=== PATIENT | female | born 1930 | race African-American/Black ===

== ENCOUNTER 2021-02-05 11:11 | Inpatient (IN) | payer OTHER ==
[~2021-02-05] VITALS: Ht 152.4 cm; Wt 41.7 kg
[2021-02-05 11:22] VITALS: BP 139/58
[2021-02-05] MEDS ORDERED: MORPHINE SULFATE 2 MG/ML SYR IVP PRN (11:35)
[2021-02-05] MEDS ORDERED: BUME1TAB PO (11:38)
[2021-02-05] MEDS ORDERED: GABA100C PO (11:38)
[2021-02-05] MEDS ORDERED: CARV3.12 PO (11:38)
[2021-02-05] MEDS ORDERED: POTA8TAB19 PO (11:38)
[2021-02-05] MEDS ORDERED: APIX5TAB PO (11:38)
[2021-02-05] MEDS ORDERED: ALBU0.0912 IH (11:38)
[2021-02-05] MEDS ORDERED: PANT40EC PO (11:38)
[2021-02-05] MEDS ORDERED: CHOL5000 PO (11:38)
[2021-02-05] MEDS ORDERED: TRAM50TA1 PO (11:38)
[2021-02-05] MEDS ORDERED: DOCU-299 PO (11:38)
[2021-02-05] MEDS ORDERED: ASPI-1749 PO (11:38)
[2021-02-05] MEDS ORDERED: SPIR50TA PO (11:38)
[2021-02-05] MEDS ORDERED: ATOR40TA PO (11:38)
--- NOTE | 2021-02-05 11:39 | NUR ---
MED REC COMPLETED
--- NOTE | 2021-02-05 11:40 | NUR ---
89 Y FEMALE BIBA FROM [facility] DUE TO WOUND ON R CALF AND GANGRINE OF 2ND TOE ON R TOE. PT BASELINE IS CURRENTLY A&OX1 TO NAME ONLY. UPON ASSESSMENT SKIN IS DRY AND FLAKY. OPEN WOUND NOTED ON R LOWER LE AND PHOTOS TAKEN. GANGRINE TOE NOTED ON R SECOND TOE. BREATH SOUNDS CLEAR, BUT PATIENT IS TACHYPENIC. PMH: CHF, CELLULITS OF BILATERAL LE, A. FIB, CEREBRAL INFRACTION, DVT, HDL, POLYNEUROPATHY, L SIDE HYSETERECTOMY, CKD, GERD, AND HYPOTENSION ALLERGIES: CODINE AND SULFA DRUGS Addendum: 02/05/21 at 1505 by [email or web address] DIMINISHED PULSES NOTED IN BILATERAL LE Addendum: 02/05/21 at 1514 by [email or web address] PMH: CHF, CELLULITS OF BILATERAL LE, A. FIB, CEREBRAL INFRACTION, DVT, HDL, POLYNEUROPATHY, L SIDE MASTECTOMY, CKD, GERD, AND HYPOTENSION
--- NOTE | 2021-02-05 11:43 | NUR ---
BLOOD SAMPLE/CULTURES, SARBJIT SWAB HANDED TO CPT MICHA AT ER BEDSIDE
--- NOTE | 2021-02-05 11:47 | NUR ---
XRAY BEDSIDE WITH PATIENT
[2021-02-05 11:53] LABS: BASOPHILS % (AUTO) 0.2 % (0.0-2.0); EOSINOPHILS % (AUTO) 0.2 % (0.0-4.0); HEMATOCRIT 31.8 % (36-48); HEMOGLOBIN 10.4 g/dL (12.0-16.0); LYMPHOCYTES # (AUTO) 0.6 K/uL (2.5-16.5); LYMPHOCYTES % (AUTO) 9.1 % (20.5-51.1); MEAN CORPUSCULAR HEMOGLOBIN 27 pg (27-31); MEAN CORPUSCULAR HGB CONC 33 g/dL (33-37); MEAN CORPUSCULAR VOLUME 82.9 fL (80-94); MONOCYTES # (AUTO) 0.6 K/uL (0.8-1.0); MONOCYTES % (AUTO) 8.7 % (1.7-9.3); NEUTROPHILS # (AUTO) 5.5 K/uL (1.8-7.7); NEUTROPHILS % (AUTO) 81.8 % (42.2-75.2); PLATELET COUNT (AUTO) 326 K/uL (140-450); RED BLOOD CELL COUNT(AUTO) 3.83 MIL/uL (4.20-5.40); RED CELL DISTRIBUTION WIDTH 17.8 % (11.6-13.7); WHITE BLOOD COUNT (AUTO) 6.7 K/uL (4.8-10.8)
--- NOTE | 2021-02-05 11:54 | NUR ---
WOUND PHOTOS COMPLETED AND PLACED INTO PATIENT CHART
[2021-02-05 12:21] LABS: ALBUMIN 2.9 g/dL (3.4-5.0); ASPARTATE AMINOTRANSFERASE 51 U/L (15-37); CARBON DIOXIDE 23.7 mmol/L (21-32); CHLORIDE 103 mmol/L (98-107); CREATININE 1.7 mg/dL (0.6-1.3); GLUCOSE 126 mg/dL (74-106); POTASSIUM 4.7 mmol/L (3.5-5.1); SODIUM SERUM 138 mmol/L (136-145); TOTAL BILIRUBIN 1.3 mg/dL (0.0-1.0); UREA NITROGEN, BLOOD 38 mg/dL (7-18)
[2021-02-05] MEDS ORDERED: PIPERACILLIN/TAZOBACTAM 3.375 GM in DEXTROSE 5% 50 ML IV ONE (12:35)
[2021-02-05] MEDS ORDERED: VANCOMYCIN 1,000 MG in DEXTROSE 5% 250 ML IV ONE (12:35)
[2021-02-05] MEDS ORDERED: PIPERACILLIN/TAZOBACTAM 3.375 GM VIAL IV ONE (12:41)
[2021-02-05] MEDS ORDERED: INSULIN LISPRO SLIDING SCALE 100 UNITS/ML VIAL SUBQ PRN (13:00)
[2021-02-05] MEDS ORDERED: HYDROcodone/APAP 5/325 MG 1 TAB TAB PO PRN (13:00)
[2021-02-05] MEDS ORDERED: ONDANSETRON 4 MG/2 ML VIAL IVP PRN (13:00)
[2021-02-05] MEDS ORDERED: DEXTROSE 50% 50 ML SYR IVP PRN (13:00)
[2021-02-05] MEDS ORDERED: ACETAMINOPHEN 325 MG TAB PO PRN (13:00)
--- NOTE | 2021-02-05 13:02 | NUR ---
PT ADMITTED TO TELE UNDER DR. DURON. PT TELE HOLD IN ED BED 11
--- NOTE | 2021-02-05 14:11 | NUR ---
PT PROVIDED WITH FRESH DIAPER AND COVERED WITH WARM BLANKET. PT ALSO REPOSITIONED FOR COMFORT AT THIS TIME
[2021-02-05] MEDS: NACL 0.9% 1,000 ML IV SCH (14:13)
[2021-02-05] MEDS ORDERED: METOPROLOL 5 MG/5 ML VIAL IV ONE (14:20)
[2021-02-05] MEDS ORDERED: METOPROLOL 50 MG TAB PO SCH (14:20)
[2021-02-05] MEDS ORDERED: VANCOMYCIN 1,000 MG VIAL ONE (14:21)
[2021-02-05] MEDS: MORPHINE SULFATE 2 MG/ML SYR IVP PRN (14:58)
--- NOTE | 2021-02-05 14:59 | NUR ---
SURGEON DR. Cruz BEDSIDE EVALUATING PT.
--- NOTE | 2021-02-05 14:59 | NUR ---
PT PROVIDED WITH FRESH DRESSING OVER WOUND ON CALF
--- NOTE | 2021-02-05 15:00 | NUR ---
14:56 - WOUND REDRESSED ON LEFT LOWER EXTREMITIY WITH NON ADHESIVE AND COBAND
[2021-02-05] MEDS: ALBUMIN HUMAN 25% 100 ML IV SCH ×2 (16:16→22:32)
--- NOTE | 2021-02-05 16:27 | NUR ---
Patient appears to be resting comfortably in bed WITH EYES OPEN. Vital Signs within normal limits AND CHARTED. Respirations even and unlabored. WILL CONTINUE TO MONITOR PT STATUS
[2021-02-05] MEDS: BLOOD GLUCOSE MONITORING 1 DEV DEV FS SCH ×2 (16:37→21:00)
--- NOTE | 2021-02-05 16:37 | NUR ---
GLUCOSE LEVEL CHECKED BEDSIDE. GLUCOSE LEVEL 141. NO INSULIN COVERAGE NEEDED AT THIS TIME
--- NOTE | 2021-02-05 17:17 | NUR ---
PT REFUSING BLOOD WORK AT THIS TIME
--- NOTE | 2021-02-05 17:51 | NUR ---
Patient appears to be resting comfortably in bed. Vital Signs within normal limits. Respirations even and unlabored.
[2021-02-05 17:55] LABS: CREATINE KINASE MB 2.6 ng/mL (0-3.6)
[2021-02-05] MEDS: LORazepam 2 MG/ML VIAL IVP PRN (18:15)
--- NOTE | 2021-02-05 18:33 | NUR ---
LAB BEDSIDE WITH PATIENT
--- NOTE | 2021-02-05 18:48 | NUR ---
SPOKE WITH DR. MONTERO AND GIVEN VERBAL ORDER TO STRAIGHT CATH PATIENT TO OBTAIN URINE SAMPLE
--- NOTE | 2021-02-05 18:50 | NUR ---
# 16 FR Urinary catheter inserted utilizing sterile technique. Immediate return of 20 ml YELLOW urine noted. Urine sample collected and sent to lab. Pt tolerated procedure WELL.
--- NOTE | 2021-02-05 19:00 | NUR ---
URINE COLLECTED AND WALKED OVER TO LAB
--- NOTE | 2021-02-05 19:26 | NUR ---
Pt report given to NEEL MCKOY. Transfer of care at this time.
[2021-02-05 19:28] LABS: APPEARANCE,URINE CLEAR (CLEAR); BILIRUBIN,URINE NEGATIVE (NEGATIVE); BLOOD, URINE 1+ (NEGATIVE); COLOR,URINE YELLOW (YELLOW); LEUKOCYTE ESTERASE ,URINE 3+ (NEGATIVE); NITRITE, URINE NEGATIVE (NEGATIVE); UGLUCOSE NEGATIVE (NEGATIVE)
[2021-02-05] MEDS: PIPERACILLIN/TAZOBACTAM 2.25 GM in DEXTROSE 5% 50 ML IV SCH (21:00)
[2021-02-05 21:45] LABS: RBC,URINE NONE SEEN /HPF (0-5); WBC,URINE 80-100 /HPF (0-5)
--- NOTE | 2021-02-05 21:54 | NUR ---
PATIENT STILL STABLE TROPONIN ELEVATE 0.130 WAS INFORMED WE DID AN EKG AND IT WAS NORMAL REPORTED GAVE TO CARMEN SHAIKH on the floor //Mer
--- NOTE | 2021-02-05 21:58 | NUR ---
patient Dyper was change we provided a fresh dyper //DiCaprio RN
--- NOTE | 2021-02-05 22:20 | NUR ---
RECEIVED REPORT AND PT FROM ED SAUL RN FOR ADMIT TO [facility] ROOM 110A. PT ARRIVED NONVERBAL, AROUSABLE TO VERBAL/TACTILE STIMULI. NO APPARENT S/S OF ACUTE DISTRESS. BREATHING EVEN AND UNLABORED ON 74L NC WITH O2 SAT OF 100%. NO C/O OR S/S OF CP, SOB OR PAIN. R IJ 20G INTACT/PATENT. POC AND WHITE COMMUNICATION BOARD UPDATED. BED IN LOW/LOCKED POSITION. CALL LIGHT WITHIN REACH. PT ENCOURAGED TO CALL FOR ANY NEEDS/ASSISTANCE. WILL CONTINUE TO MONITOR.
--- NOTE | 2021-02-05 22:30 | NUR ---
2100 MEDS GIVEN PER EMAR UPON ARRIVAL TO FLOOR. TOLERATED WELL. ZOSYN NOT AVAILABLE AT THIS TIME. HOUSE SUP NOTIFIED AND WILL F/U WITH OBTAINING FROM PHARMACY TO ADMINISTER.
--- NOTE | 2021-02-05 22:36 | NUR ---
PATIENT ADMITED TO THE FLOOR STABLE WENT TO ROOM [address] FRIEDMAN REPORTED GAVE TO CARMEN SHAIKH VITAL SIGNS IN NORMAL LIMITS NO COMPLAINING OF PAIN //DiCaprio RN
--- NOTE | 2021-02-05 22:50 | NUR ---
EKG PERFORMED BY RT, RESULTS UNCHANGED FROM PREVIOUS 2 EKGS PERFORMED IN ED.
--- NOTE | 2021-02-05 22:56 | NUR ---
EKG PERFORMED AND ABNORMAL RESULTS REPORTED TO RN. A COPY WAS PROVIDED TO THE RN AND PLACED IN THE CHART. DUE TO ABNORMAL RESULTS A RHYTHM STRIP WAS ALSO OBTAINED AND PLACED IN THE CHART.
[2021-02-05 23:39] VITALS: BP 123/57
[2021-02-06] VITALS: BP 122/44
--- NOTE | 2021-02-06 00:10 | NUR ---
DR. DURON CALLED FOR CLARIFICATION ON CODE STATUS. PUT ORDER IN FOR DNR AND PATIENT HAS A COPY OF POLST IN CHART FOR DNR, DATED 01/2021. WILL AWAIT CALL BACK AND ORDERS.
[2021-02-06] MEDS ORDERED: PIPERACILLIN/TAZOBACTAM 2.25 GM VIAL IV ONE (00:12)
[2021-02-06] MEDS: NACL 0.9% 1,000 ML IV SCH ×2 (01:32→14:40)
[2021-02-06 04:00] VITALS: BP 122/45
[2021-02-06] MEDS: PIPERACILLIN/TAZOBACTAM 2.25 GM in DEXTROSE 5% 50 ML IV SCH ×3 (05:00→22:16)
[2021-02-06] MEDS: ALBUMIN HUMAN 25% 100 ML IV SCH (05:20)
[2021-02-06] MEDS: BLOOD GLUCOSE MONITORING 1 DEV DEV FS SCH ×4 (06:44→21:00)
--- NOTE | 2021-02-06 07:00 | NUR ---
REPORT GIVEN TO LEON RN FOR CONTINUITY OF CARE. NO APPARENT S/S OF ACUTE DISTRESS. BREATHING EVEN AND UNLABORED. LEON TO F/U WITH DR. DURON IN REGARDS TO CODE STATUS AND PHARMACY TO RECONCILE ZOSYN ADMINISTRATION TIMES. BED IN LOW/LOCKED POSITION. CALL LIGHT WITHIN REACH. ALL NEEDS MET AT THIS TIME.
--- NOTE | 2021-02-06 07:15 | NUR ---
RECEIVED REPORT FROM WORKERS COMPENSATION ANALYST NURSE. BREATHING SYMMETRICAL. NO S/S OF DISTRESS. IV RUNNING PER MD ORDERS. CALL LIGHT IN REACH. ALL SAFETY MEASURES ARE IN PLACE. O2 1L NC.
[2021-02-06 08:00] VITALS: BP 111/45
--- NOTE | 2021-02-06 08:00 | NUR ---
SPOKE TO SOLID WASTE LANDFILL TECHNICIAN. PT REFUSED ULTRASOUND. WILL DISCUSS REFUSAL WITH PT AND RESCHEDULE US
[2021-02-06 08:32] LABS: BASOPHILS % (AUTO) 0.5 % (0.0-2.0); EOSINOPHILS % (AUTO) 0.3 % (0.0-4.0); HEMOGLOBIN 8.7 g/dL (12.0-16.0); LYMPHOCYTES # (AUTO) 0.6 K/uL (2.5-16.5); LYMPHOCYTES % (AUTO) 11.3 % (20.5-51.1); MEAN CORPUSCULAR HEMOGLOBIN 27 pg (27-31); MEAN CORPUSCULAR HGB CONC 32 g/dL (33-37); MEAN CORPUSCULAR VOLUME 84.3 fL (80-94); MONOCYTES # (AUTO) 0.4 K/uL (0.8-1.0); MONOCYTES % (AUTO) 8.6 % (1.7-9.3); NEUTROPHILS # (AUTO) 4.2 K/uL (1.8-7.7); NEUTROPHILS % (AUTO) 79.3 % (42.2-75.2); PLATELET COUNT (AUTO) 246 K/uL (140-450); RED CELL DISTRIBUTION WIDTH 18.3 % (11.6-13.7); WHITE BLOOD COUNT (AUTO) 5.2 K/uL (4.8-10.8)
[2021-02-06 08:47] LABS: ALBUMIN 3.9 g/dL (3.4-5.0); ANION GAP 16.3 (8-16); ASPARTATE AMINOTRANSFERASE 44 U/L (15-37); CARBON DIOXIDE 21.1 mmol/L (21-32); CHLORIDE 106 mmol/L (98-107); CREATININE 1.7 mg/dL (0.6-1.3); GLUCOSE 101 mg/dL (74-106); MAGNESIUM 2.1 mg/dL (1.8-2.4); POTASSIUM 4.4 mmol/L (3.5-5.1); SODIUM SERUM 139 mmol/L (136-145); TOTAL BILIRUBIN 1.4 mg/dL (0.0-1.0); UREA NITROGEN, BLOOD 38 mg/dL (7-18)
--- NOTE | 2021-02-06 08:54 | NUR ---
RECEIVED CRITICAL VALUES FROM [facility] IN LAB. TROPONIN 0.125, DOWN TRENDING.
[2021-02-06] MEDS: ASPIRIN 81 MG TAB.CHEW PO SCH (09:00)
--- NOTE | 2021-02-06 09:05 | NUR ---
PATIENT HAS BEEN SCREENED AND CATEGORIZED HIGH NUTRITION RISK. PATIENT WILL BE SEEN WITHIN 1-2 DAYS OF ADMISSION. 02/06/21-02/07/[address]
--- NOTE | 2021-02-06 09:46 | NUR ---
PT REFUSED BREAKFAST AND PO MEDICATION. PT PULLED OUT IV. PT EDUCATED ON MEDICATION GIVEN. BREATHING SYMMETRICAL ON RA. NO S/S OF DISTRESS. CALL LIGHT IN REACH. ALL SAFETY MEASURES IN PLACE. WILL ATTEMPT NEW IV.
--- NOTE | 2021-02-06 10:42 | NUR ---
SPOKE TO DR STAPLETON. PT NOT CLEARED BY CARDIOLOGY. WANTS PULMONOLOGY CLEARED FIRST. NOTIFIED ABOUT IV ACCESS. ASKED FOR PT FAMILY TO BE NOTIFIED OF STATUS.
[2021-02-06 12:00] VITALS: BP 116/47
--- NOTE | 2021-02-06 12:20 | NUR ---
WOUND CARE EVALUATION NOTE: REASON FOR EVALUATION: LOW JIMMY SCALE AND LEG WOUND 89-YEAR-OLD [facility] ADMITTED WITH DRY GANGRENE OF THE SECOND RIGHT TOE AND COMPLAINS OF PAIN IN THE RIGHT LOWER EXTREMITY. 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 SKIN ASSESSMENT DONE ON THIS PT.PT IS AWAKE, TRY TO PUSH AWAY THE WOUND CARE NURSE DURING ASSESSMENT, PT. WITH PAIN 8/10 WHEN BLE TOUCHED, SKIN IS WARM , PALE AND DRY WITH POOR SKIN TURGOR, BLE SEVERE CONTRACTURES, NO HAIR GROWTH, NO EDEMA. DORSAL PEDAL PULSES PRESENT AND NORMAL. CAPILLARY REFILLED > 3 SEC. X 9 TOES. INCONTINENT BOWEL AND BLADDER. PLAN OF CARE DISCUSSED WITH PRIMARY RN. INTEGUMENTARY: -ORAL MEMBRANE INTACT PALE AND DRY - RIGHT 2ND TOE DRY GANGRENE - PERIPHERAL VASCULAR DISEASE RIGHT LATERAL LOWER LEG FULL THICKNESS SKIN LOSS 4X4X1.5CM WOUND BED 50% PALE PINK TISSUE WITH 50 % SOFT SLOUGH TISSUE, SMALL AMOUNT PURULENT DRAINAGE WITH MILD ODOR, YUNG WOUND SKIN OLD HEALED SCAR TISSUE, DRY AND INTACT. RECOMMENDATIONS: -PENDING SURGEON FOR DEBRIDEMENT -CLEANSE RLE WITH WOUND CARE SOLUTION, PAT DRY, PACK MOIST BETADINE 4X4 DRESSING TO WOUND BED, AND COVER WITH DRY DRESSING QD AND PRN IF SOILING -PAINT RIGHT 2ND TOE WITH BETADINE SOLUTION BID AND JUNO -APPLY FORM DRESSING TO ALL BONY PROMINENCES CHANGE Q3 DAYS AND PRN IF SOILING -APPLY HEEL PROTECTORS TO BOTH HEELS AT ALL TIMES -OFFLOAD BILATERAL HEELS BY PLACING PILLOWS UNDER CALVES UNLESS OTHERWISE CONTRAINDICATED -PRESSURE REDISTRIBUTION SURFACE THERAPY -TURN AND REPOSITION Q2H, OFFLOAD SACRALCOCCYX AND BUTTOCKS BY TURNING RIGHT AND LEFT -CONTINUE TO FOLLOW RD RECOMMENDATIONS PLEASE CONTACT WOUND CARE NURSE FOR ANY QUESTION AND CHANGE OF WOUND CONDITION.
--- NOTE | 2021-02-06 12:54 | NUR ---
PT RESTING IN BED. NEW IV INSERTED IN RIGHT AC 24G. PT TOLERATED WELL. CALL LIGHT IN REACH. ALL SAFETY MEASURES IN PLACE.
[2021-02-06] MEDS: GAUZE TP SCH (13:21)
[2021-02-06 13:58] LABS: CREATINE KINASE MB 4.1 ng/mL (0-3.6)
--- NOTE | 2021-02-06 14:03 | NUR ---
SPOKE TO COURTNEY IN LAB. CRITICAL VALUE REPORTED. TROPONIN 0.134
--- NOTE | 2021-02-06 14:28 | NUR ---
02/06/21 RD INITIAL ASSESSMENT COMPLETED PLEASE REFER TO NUTRITION ASSESSMENT UNDER CARE ACTIVITY FOR ESTIMATED NUTRITIONAL NEEDS. 1. [facility] TOL[facility] 2. RECOMMEND GLUCERNA BID AND CHELY BID -THIS WILL PROVIDE AN ADDITIONAL 440 KCAL AND [address] TO FOLLOW-UP 2-3 DAYS, HIGH RISK ANA XIE, RD
--- NOTE | 2021-02-06 15:04 | NUR ---
DC PLANNING 89 YRS OLD FEMALE PATIENT WAS ADMITTED FROM [facility] WITH A DX OF RIGHT FOOT GANGRENE. PATIENT HAS A HX OF HTN, DM, OSTEOARTHRITIS , PVD AND DVT ON RT LEG. 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 URINE CULTURE PENDING. SEEN BY CARDIO AND SURGEON DR GALEAS DISCUSSED WITH PATIENT FOR POSSIBLE RT 2ND TOE AMPUTATION AND DEBRIDEMENT OF THE HEEL AND CONSULTED WITH PODIATRY. DC PLAN TO GO BACK TO [facility] WHEN STABLE CM TO FOLLOW Addendum: 02/07/21 at 1348 by Marbella Bender RN DC PLANNING: [facility] AND CALLED AND SPOKE WITH ARSLAN, PT CAN GO TO ROOM 22A. ARRANGED TRANSPORT WITH [facility]. COMMUNITY AMBASSADOR TIME 1700 FAXED ALL THE ORDERS TO [facility] , AWAITING FOR AUTH FOR SNF. CM TO FOLLOW Addendum: 02/07/21 at 1407 by Marbella Bender RN DC PLANNING: CALLED [facility] SPOKE WITH [employer], FAXED THE ORDER, SHE PROVIDED THE AUTH FOR [facility] [id number] AND TRANSPORT AUTH [id number] [place] TO FOLLOW COMMUNITY AMBASSADOR TIME 1700 Addendum: 02/08/21 at 1415 by Marbella Bender RN DC PLANNING: PATIENT HAS PICC LINE GOING BACK TO [facility] ROOM NUMBER 22A # TO GIVE REPORT [phone] ARRANGED TRANSPORT WITH [facility] [phone] COMMUNITY AMBASSADOR TIME 3 PM .NOTIFIED MASON MCKEON CM TO FOLLOW
[2021-02-06 16:00] VITALS: BP 116/43
--- NOTE | 2021-02-06 16:39 | NUR ---
SPOKE TO PT SON SHIVANI AT [phone]. UPDATED ON PT CONDITION AND CANCELLATION OF SURGERY ON RIGHT FOOT. SON CONFIRMED PT DNR STATUS. WILL HAVE PT CALL FAMILY WHEN SHE IS AWAKE AND ALERT.
--- NOTE | 2021-02-06 18:35 | NUR ---
SPOKE TO PT ESTIVEN PARRISH. UPDATED SON AND CONNECTED ROOM PHONE FOR PT TO USE. PATIENT COMPLAINED OF PAIN IN LEGS. BREATHING SYMMETRICAL. CALL LIGHT IN REACH. ALL SAFETY MEASURES IN PLACE. IV RUNNING PER MD ORDER.
[2021-02-06] MEDS: MORPHINE SULFATE 2 MG/ML SYR IVP PRN (19:04)
--- NOTE | 2021-02-06 19:05 | NUR ---
PT MEDICATED FOR PAIN. EDUCATED ON MEDICATION GIVEN. PT VERBALIZED UNDERSTANDING. PT ON PHONE WITH FAMILY. NO S/S OF DISTRESS. CALL LIGHT IN REACH. ALL SAFETY MEASURES IN PLACE. WILL REASSESS
[2021-02-06 20:00] VITALS: BP 119/65
--- NOTE | 2021-02-06 20:06 | NUR ---
ENDORSED PT TO WINDOWS SERVER SUPPORT TECHNICIAN NURSE FOR CONTINUITY OF CARE. PT STABLE. BREATHING SYMMETRICAL. NO S/S OF DISTRESS. CALL LIGHT IN REACH. ALL SAFETY MEASURES IN PLACE. IV PATENT. IV FLUIDS RUNNING PER MD ORDER.
--- NOTE | 2021-02-06 23:20 | NUR ---
THE PATEINTR IS NON VERBAL , ALERT ORIENTED X1, VITALS ARE STABLE . BREATHING IS EVEN AND UNLABORED. NO COMPLAIN OF PAIN . PATEINT BS IS 89, NO INSULIN COVERAGE . MEDS WERE ADMINISTERED. BED IS LOW POSITION , COMFORT AND SAFETY MEASURES WERE PROVIDED
[2021-02-07 01:12] VITALS: BP 108/59
--- NOTE | 2021-02-07 01:14 | NUR ---
the patient stateds to talk and stated that she had pain 6 on scale 0-10 . narco was given .
[2021-02-07] MEDS: NACL 0.9% 1,000 ML IV SCH (03:50)
[2021-02-07 03:59] VITALS: BP 120/70
[2021-02-07] MEDS: LORazepam 2 MG/ML VIAL IVP PRN (03:59)
--- NOTE | 2021-02-07 06:05 | NUR ---
the patient was confused and anxious. ativan was given , she is calm and sleeps comfotable in her bed . comfort and safety measures are provided
[2021-02-07] MEDS: PIPERACILLIN/TAZOBACTAM 2.25 GM in DEXTROSE 5% 50 ML IV SCH ×3 (06:09→21:40)
--- NOTE | 2021-02-07 07:15 | NUR ---
RECEIVED REPORT FROM PINBALL MACHINE REPAIRER NURSE. BREATHING SYMMETRICAL. NO S/S OF DISTRESS. RECONNECTED IV. IV RUNNING PER MD ORDERS. CALL LIGHT IN REACH. ALL SAFETY MEASURES ARE IN PLACE.
[2021-02-07 08:00] VITALS: BP 111/64
[2021-02-07] MEDS: BLOOD GLUCOSE MONITORING 1 DEV DEV FS SCH ×4 (08:09→21:44)
[2021-02-07] MEDS: ASPIRIN 81 MG TAB.CHEW PO SCH (08:10)
--- NOTE | 2021-02-07 08:11 | NUR ---
PT BG 91. NO COVERAGE NEEDED. PATENT REFUSED ASPIRIN. PT SON STATED PATENT CAN NOT TAKE ASPIRIN PER PCP/ PRIMARY BOND UNDERWRITER. PT STABLE. NO S/S OF DISTRESS. CALL LIGHT IN REACH. ALL SAFETY MEASURES IN PLACE
--- NOTE | 2021-02-07 10:40 | NUR ---
PT RESTING IN BED. BREATHING SYMMETRICAL. NO S/S OF DISTRESS. CALL LIGHT IN REACH. ALL SAFETY MEASURES ARE IN PLACE. IV FLUID ORDER IS DISCONTINUED. DR STAPLETON SPOKE TO PT FAMILY WITH UPDATE. Addendum: 02/07/21 at 1237 by Ugo Ceja RN RN NEW ORDER WAS ENTERED FOR LOPRESSOR 50MG BID PO TO START NOW.
[2021-02-07] MEDS ORDERED: ROC2I IV (10:49)
[2021-02-07] MEDS ORDERED: METO25TA PO (10:59)
[2021-02-07] MEDS ORDERED: METOPROLOL 50 MG TAB PO SCH (11:00)
[2021-02-07 12:00] VITALS: BP 124/89
--- NOTE | 2021-02-07 12:34 | NUR ---
PT HAS DC ORDER IN. WAITING FOR CM TO CONFIRM PLAN WITH CARE FACILITY FOR ROOM AND TRANSPORTATION. BG 89. NO COVERAGE NEEDED. BREATHING SYMMETRICAL. NO S/S OF DISTRESS. CALL LIGHT IN REACH. ALL SAFETY MEASURES ARE IN PLACE.
[2021-02-07] MEDS: GAUZE TP SCH (13:43)
--- NOTE | 2021-02-07 14:53 | NUR ---
PT DC PLAN TO RETURN TO [facility]. ROOM 22A. TRANSPORTED THROUGH [facility] AT 1700 TODAY.TRANSPORTATION PHONE [phone]. NUMBER FOR REPORT [phone].
--- NOTE | 2021-02-07 15:55 | NUR ---
DC PLANNING: CM RECEIVED A CALL FROM [facility] ASKING THAT PATIENT HAVE A PICC/MIDLINE PLACED FOR MULTI OPERATION FORMING MACHINE SETTER IV ABX. THE PATIENTS RN CALLED DR DURON, ORDER GIVEN FOR PICC LINE PLACEMENT. CM CALLED [facility]SP[facility] TO CANCEL HER ASSISTANT PROFESSOR OF GEOGRAPHY AT 1700, ENDORSED TO [facility] THAT THE PATIENT WILL DC TO THEM TOMORROW. CM WILL FOLLOW FOR NEEDS.
[2021-02-07 16:00] VITALS: BP 110/57
--- NOTE | 2021-02-07 16:24 | NUR ---
SPOKE WITH MD AND PT STEPHANIE KISER AT [phone] FOR PICC LINE CONSENT. CONSENT WAS RECEIVED FROM PT DAUGHTER BY MYSELF AND RN NEELIMA VIA TELEPHONE. PICC LINE SCHEDULED FOR 02/08/21. TRANSPORTATION RESCHEDULED FOR 02/08/21 TO TRANSPORT PT TO [facility].
--- NOTE | 2021-02-07 17:58 | NUR ---
PT RESTING IN BED WITH EYES CLOSED. BREATHING SYMMETRICAL. NO S/S OF DISTRESS. CALL LIGHT IN REACH. ALL SAFETY MEASURES ARE IN PLACE.
--- NOTE | 2021-02-07 19:24 | NUR ---
ENDORSED PT TO COMPUTER PROCESSING SCHEDULER NURSE FOR CONTINUITY OF CARE. PT STABLE. BREATHING SYMMETRICAL. NO S/S OF DISTRESS. CALL LIGHT IN REACH. ALL SAFETY MEASURES IN PLACE. IV SALINE LOCKED. PATIENT ATE 30% OF DINNER. REFUSED ALL OTHER MEALS TODAY
[2021-02-07] MEDS: METOPROLOL 50 MG TAB PO SCH (21:41)
[2021-02-07 22:14] VITALS: BP 112/62
--- NOTE | 2021-02-07 23:15 | NUR ---
the pateint is alert orinted x1. scheduled meds were administered. bs 159 , insulin was given . vitals are stable , HR is 89-100.breathing is even and unlabored . no complain of pain , comfort and safety measures are provided
[2021-02-08] MEDS: LORazepam 2 MG/ML VIAL IVP PRN (03:42)
[2021-02-08 03:50] VITALS: BP 135/65
[2021-02-08] MEDS: PIPERACILLIN/TAZOBACTAM 2.25 GM in DEXTROSE 5% 50 ML IV SCH ×2 (05:27→14:02)
--- NOTE | 2021-02-08 05:50 | NUR ---
tyhe patient was confused and anxious, ativan was given
--- NOTE | 2021-02-08 07:15 | NUR ---
PATIENT SLEEPING. NO ACUTE DISTRESS NOTED. CALL LIGHT WITHIN REACH. ALL SAFETY MEASURES IN PLACE. WILL CONTINUE TO MONITOR.
[2021-02-08 08:00] VITALS: BP 145/58
[2021-02-08] MEDS: BLOOD GLUCOSE MONITORING 1 DEV DEV FS SCH ×2 (08:26→11:21)
[2021-02-08] MEDS: METOPROLOL 50 MG TAB PO SCH (08:38)
--- NOTE | 2021-02-08 08:38 | NUR ---
PATIENT AWAKE. NO ACUTE DISTRESS NOTED. PATIENT ON RA. SCHEDULED MEDICATIONS GIVEN. ALL SAFETY MEASURES IN PLACE. WILL CONTINUE TO MONITOR.
[2021-02-08] MEDS ORDERED: BUMETANIDE 1 MG TAB PO SCH (09:06)
--- NOTE | 2021-02-08 10:15 | NUR ---
PATIENT AWAKE. NO ACUTE DISTRESS NOTED. PATIENT ON RA. CALL LIGHT WITHIN REACH. ALL SAFETY MEASURES IN PLACE. WILL CONTINUE TO MONITOR.
[2021-02-08 12:00] VITALS: BP 154/68
--- NOTE | 2021-02-08 12:10 | NUR ---
PATIENT AWAKE. NO ACUTE DISTRESS NOTED. PATIENT ON RA.CLAY TRANSPORTER AT BEDSIDE AIDING IN ADL'S. CALL LIGHT WITHIN REACH. ALL SAFETY MEASURES IN PLACE. WILL CONTINUE TO MONITOR.
[2021-02-08] MEDS: GAUZE TP SCH (13:00)
--- NOTE | 2021-02-08 13:51 | NUR ---
02/08/21 RD FOLLOW UP COMPLETED PLEASE REFER TO NUTRITION ASSESSMENT UNDER CARE ACTIVITY FOR ESTIMATED NUTRITIONAL NEEDS. 1. [facility] TOL[facility] 2. RECOMMEND GLUCERNA BID AND CHELY BID -THIS WILL PROVIDE AN ADDITIONAL 440 KCAL AND 20 GM OF PROTEIN 3. PROVIDE ASSISTANCE WITH MEALS 4. RD TO FOLLOW-UP 2-3 DAYS, HIGH RISK ANA XIE, RD
--- NOTE | 2021-02-08 14:02 | NUR ---
PATIENT AWAKE. NO ACUTE DISTRESS NOTED. PATIENT ON RA. SCHEDULED MEDICATIONS GIVEN. CALL LIGHT WITHIN REACH. ALL SAFETY MEASURES IN PLACE. WILL CONTINUE TO MONITOR.
--- NOTE | 2021-02-08 15:20 | NUR ---
PATIENT AWAKE. NO ACUTE DISTRESS NOTED. VITAL SIGNS STABLE. REPORT GIVEN TO MED SHAIKH FROM [facility]. ALL DISCHARGE INFORMATION SENT WITH PATIENT. PICC LINE TO R UPPER ARM. PATIENT TO CONTINUE ABX FOR 42 DAYS AT FACILITY. WRIST BAND REMOVED. PATIENT TRANSPORTED VIA GURNEY.
[2021-02-08] MEDS ORDERED: SPIRONOLACTONE 25 MG TAB PO SCH (17:00)
== END 2021-02-08 15:20 | DRG 603 ==
LOC: MED 11:11 → MTU 13:02
PROVIDERS: ADMIT Hospitalist; ATTEND Hospitalist
DX: L03.115 Cellulitis of right lower limb (principal); I96 Gangrene, not elsewhere classified; E44.0 Moderate protein-calorie malnutrition; M86.9 Osteomyelitis, unspecified; E11.52 Type 2 diabetes mellitus with diabetic peripheral angiopathy with gangrene; Z68.1 Body mass index [BMI] 19.9 or less, adult; N17.9 Acute kidney failure, unspecified; M19.90 Unspecified osteoarthritis, unspecified site; I49.3 Ventricular premature depolarization; I34.0 Nonrheumatic mitral (valve) insufficiency; I48.91 Unspecified atrial fibrillation; I36.1 Nonrheumatic tricuspid (valve) insufficiency; Z20.822 Contact with and (suspected) exposure to COVID-19; I12.9 Hypertensive chronic kidney disease with stage 1 through stage 4 chronic kidney disease, or unspecified chronic kidney disease; E11.22 Type 2 diabetes mellitus with diabetic chronic kidney disease; N18.9 Chronic kidney disease, unspecified; Z86.718 Personal history of other venous thrombosis and embolism; Z88.5 Allergy status to narcotic agent; Z88.2 Allergy status to sulfonamides; Z79.899 Other long term (current) drug therapy; Z79.82 Long term (current) use of aspirin; Z79.01 Long term (current) use of anticoagulants
CPT/HCPCS: 36415; 51702; 71045; 73590; 73630; 80053; 81001; 82550; 82553; 82948; 83605; 83735; 84484; 85025; 85651; 86140; 87040; 87081; 87086; 93005; 96365; 96366; 96367; 96375; 99285; J1644; J2060; J2270; J2543; J3370; J3490; J7060; P9046; Q0092